=== PATIENT | female | born 1965 | race Caucasian/White ===

== ENCOUNTER 2017-07-13 01:43 | Inpatient (IN) | payer MEDICAID ==
[2017-07-13] VITALS (8 sets, daily range): BP systolic 11–144; BP diastolic 67–93
[~2017-07-13] VITALS: Ht 157.5 cm; Wt 74.4 kg
[2017-07-13 02:52] LABS: RED CELL DISTRIBUTION WIDTH 12.7 % (11.5-14.5)
[2017-07-13 02:53] LABS: BASOPHIL % 4.2 % (0-2); PLATELET COUNT 414 x10^3mcL (130-400)
[2017-07-13 03:07] LABS: T3 TOTAL 1.29 ng/mL
[2017-07-13 03:10] LABS: ALBUMIN 3.7 g/dL (3.4-5.0); ALKALINE PHOSPHATASE 131 U/L (46-116); ALT/SGPT 31 U/L (14-59); AST/SGOT 19 U/L (15-37); BILIRUBIN TOTAL 0.2 mg/dL (0.20-1.00); C REACTIVE PROTEIN < 0.2 mg/dL (<=0.9); CALCIUM 8.6 mg/dL (8.5-10.1); CARBON DIOXIDE 27.3 mmol/L (21-32); CHLORIDE SERUM 106 mmol/L (98-107); CK-MB < 0.5 ng/mL (0-3.6); CREATINE KINASE 51 U/L (26-192); CREATININE SERUM 0.8 mg/dL (0.6-1.0); GFR1 > 60 mL/min; GLUCOSE SERUM 176 mg/dL (74-106); SODIUM SERUM 143 mmol/L (136-145); TOTAL PROTEIN, SERUM 7.9 g/dL (6.4-8.2)
[2017-07-13 03:11] LABS: POTASSIUM SERUM 2.7 mmol/L (3.5-5.1)
[2017-07-13 03:13] LABS: FREE T4 1.12 ng/dL (0.76-1.46); T4(THYROXINE) 9.2 ug/dL (4.7-13.3)
[2017-07-13 03:13] LABS: UA SPECIFIC GRAVITY 1.025 (1.005-1.035); microscopic required? YES; urine erythrocyte TRACE (NEGATIVE)
[2017-07-13 03:16] LABS: AMPHETAMINE QUAL UR NONE DETECTED (NEG <=1000)
[2017-07-13 03:43] LABS: ERYTHROCYTE SED RATE 17 mm/hr (0-30)
[2017-07-13 06:40] LABS: CHOLESTEROL/HDL RATIO 3.2; MAGNESIUM 2.1 mg/dL (1.8-2.4); PHOSPHOROUS 2.6 mg/dL (2.5-4.9)
[2017-07-13 12:58] LABS: BASOPHIL % 0.2 % (0-2); PLATELET COUNT 319 x10^3mcL (130-400); RED CELL DISTRIBUTION WIDTH 14.1 % (11.5-14.5)
[2017-07-13 18:36] LABS: CALCIUM 8.7 mg/dL (8.5-10.1); CARBON DIOXIDE 21.4 mmol/L (21-32); CHLORIDE SERUM 103 mmol/L (98-107); CREATININE SERUM 0.9 mg/dL (0.6-1.0); GFR1 > 60 mL/min; GLUCOSE SERUM 250 mg/dL (74-106); POTASSIUM SERUM 4.6 mmol/L (3.5-5.1); SODIUM SERUM 138 mmol/L (136-145)
[2017-07-14 06:40] VITALS: BP 125/74
[2017-07-14 07:08] LABS: PLATELET COUNT 328 x10^3mcL (130-400); RED CELL DISTRIBUTION WIDTH 14.1 % (11.5-14.5)
[2017-07-14 07:21] LABS: CALCIUM 8.9 mg/dL (8.5-10.1); CARBON DIOXIDE 22.8 mmol/L (21-32); CHLORIDE SERUM 106 mmol/L (98-107); CREATININE SERUM 0.6 mg/dL (0.6-1.0); GFR1 > 60 mL/min; GLUCOSE SERUM 184 mg/dL (74-106); POTASSIUM SERUM 4.5 mmol/L (3.5-5.1); SODIUM SERUM 137 mmol/L (136-145)
[2017-07-14 08:59] VITALS: BP 123/74
[2017-07-14 11:41] LABS: BAND NEUTROPHIL 4 % (0-10); BASOPHIL 0 % (0-2); MONOCYTE 1 % (0-7); SEGMENTED NEUTROPHILS 91 % (37-75)
[2017-07-14 11:42] LABS: rbc morphology (normal/abnorm) ABNORMAL (NORMAL)
[2017-07-14 17:22] VITALS: BP 130/79
[2017-07-14 19:25] VITALS: BP 117/78
[2017-07-15 06:01] VITALS: BP 157/92
[2017-07-15 06:36] LABS: PLATELET COUNT 331 x10^3mcL (130-400); RED CELL DISTRIBUTION WIDTH 14.1 % (11.5-14.5)
[2017-07-15 06:53] LABS: CALCIUM 8.8 mg/dL (8.5-10.1); CARBON DIOXIDE 24.3 mmol/L (21-32); CHLORIDE SERUM 105 mmol/L (98-107); CREATININE SERUM 0.7 mg/dL (0.6-1.0); GFR1 > 60 mL/min; GLUCOSE SERUM 167 mg/dL (74-106); MAGNESIUM 2.2 mg/dL (1.8-2.4); PHOSPHOROUS 3.6 mg/dL (2.5-4.9); POTASSIUM SERUM 4.2 mmol/L (3.5-5.1); SODIUM SERUM 138 mmol/L (136-145)
[2017-07-15 07:38] LABS: BAND NEUTROPHIL 2 % (0-10); MONOCYTE 4 % (0-7); SEGMENTED NEUTROPHILS 92 % (37-75); rbc morphology (normal/abnorm) NORMAL (NORMAL)
[2017-07-15 09:27] VITALS: BP 149/82
[2017-07-15] MEDS ORDERED: ZIT250 PO (09:47)
[2017-07-15] MEDS ORDERED: CYCLOBENZAPRINE5 MG PO (09:48)
[2017-07-15] MEDS ORDERED: DOXYCYCLINE HY100 MG PO (09:53)
[2017-07-15] MEDS ORDERED: LAC PO (09:54)
[2017-07-15] MEDS ORDERED: MEDDP PO (10:09)
[2017-07-15 10:37] VITALS: BP 149/82
[2017-07-15] MEDS ORDERED: ZES5 PO (10:59)
[2017-07-15] MEDS ORDERED: MOT800 PO (10:59)
== END 2017-07-15 12:18 | disposition home or self-care (01) | DRG 720 ==
LOC: ED 01:43 → DU 04:35 → MU 04:35 → DU 05:30 → MU 05:30 → DU 05:34 → MU 17:33
PROVIDERS: Specialist; ADMIT Family Medicine
DX: A41.9 Sepsis, unspecified organism (principal); N17.0 Acute kidney failure with tubular necrosis; J18.9 Pneumonia, unspecified organism; J45.901 Unspecified asthma with (acute) exacerbation; K21.9 Gastro-esophageal reflux disease without esophagitis; E87.6 Hypokalemia; I10 Essential (primary) hypertension; M47.892 Other spondylosis, cervical region; R73.03 Prediabetes; F15.10 Other stimulant abuse, uncomplicated; E66.3 Overweight; Z68.30 Body mass index [BMI] 30.0-30.9, adult
CPT/HCPCS: 36600; 82962; 83880; 84439; 94150; G0480; J0696; J1885; J2920; J2930; J3475; J3480; J7030; J7040; J7620; Q0092; Q9967